=== PATIENT | male | born 1960 | race Caucasian/White ===

== ENCOUNTER 2023-11-14 12:29 | Outpatient (REF) | payer BC, SELFPAY ==
[2023-11-14 13:26] LABS: MANUAL DIFF FLAG NO
[2023-11-14 13:35] LABS: Basophils Absolute Auto 0.1 X10*3/uL (0.0-0.2); Basophils Percent Auto 0.7 % (0-2); Eosinophils Absolute Auto 0.1 X10*3/uL (0.0-0.4); Eosinophils Percent Auto 0.9 % (0-4); Hematocrit 47.9 % (42.0-52.0); Hemoglobin 16.3 g/dl (14.0-18.0); Imm Gran Abs Auto 0.02 X10*3/uL (0.00-0.03); Imm Gran Pct Auto 0.3 % (0.0-0.4); Lymphocytes Absolute Auto 1.8 X10*3/uL (1.2-4.9); Lymphocytes Percent Auto 24.6 % (20-40); Mean Corpuscular Hemoglobin 29.6 pg (27.0-33.0); Mean Corpuscular Volume 86.9 fL (80.0-98.0); Mean Platelet Volume 9.4 fL (9.4-12.4); Monocytes Absolute Auto 0.7 X10*3/uL (0.1-1.2); Monocytes Percent Auto 9.5 % (2-11); Neutrophils Absolute Auto 4.8 x10*3/uL (2.0-8.3); Platelet Count 299 X10*3/uL (160-400); Red Blood Count 5.51 X10*6/uL (4.60-5.80); Red Cell Distribution Width 12.5 % (11.0-16.0); White Blood Count 7.5 X10*3/uL (4.8-10.8)
[2023-11-14 14:05] LABS: Alanine Aminotransferase 18 U/L (0-40); Albumin Level 4.3 g/dL (3.5-5.0); Alkaline Phosphatase 44 U/L (39-117); Anion Gap 13 (12-20); Aspartate Amino Transferase 17 U/L (5-37); Bilirubin Total 0.5 mg/dL (0.0-1.0); Blood Urea Nitrogen 10 mg/dL (9-16); Calcium 9.3 mg/dL (8.4-10.2); Carbon Dioxide 23 mmol/L (22-29); Chloride 108 mmol/L (96-108); Estimated Glomerular Filt Rate > 60; Glucose Fasting 92 mg/dL (60-99); Sodium 140 mmol/L (135-145); Total Protein 7.5 g/dL (6.5-8.0)
[2023-11-14 14:08] LABS: Erythrocyte Sedimentation Rate 2 MM/HR (0-15)
[2023-11-14 14:14] LABS: Free T4 (Free Thyroxine) 1.02 ng/dL (0.71-1.85); Thyroid Stimulating Hormone 0.86 uIU/mL (0.32-4.0)
== END 2023-11-14 12:30 | disposition home or self-care (01) ==
LOC: HO.10HDL 12:29
PROVIDERS: Visit Provider Family Medicine
DX: R53.81 Other malaise (principal); R53.1 Weakness
CPT/HCPCS: 36415; 80053; 84439; 84443; 85025; 85652

== ENCOUNTER 2025-03-24 14:22 | Outpatient (AMB) | payer BC, SELFPAY ==
--- NOTE | 2025-03-24 14:25 | A.OFFPC_ITS ---
Vital Signs 03/24/25 14:29 Height 5 ft 11 in Weight 89.811 kg BMI 27.6 BP 126/78 Respiration 14 Pulse 94 Temp 97.3 F Temp Source Temporal Artery Scan Pulse Oximetry (%) 97 Oxygen Delivery Method Room Air Intake Visit Reasons: routine,Dr Londono pt Voice Network Administrator Required: No Accompanied by: Self / Same As Patient Allergies Environmental Allergy (Intermediate, Uncoded 06/11/20 16:14) COUGH, RUNNY NOSE, SORE THROAT Medication List - Last Reconciled 03/24/25 by PJ Pizano No Known Home Meds HPI HPI Comments History of Present Illness Details 64-year-old male with history of BPH, ma carly depressive disorder, GERD, hyperlipidemia, venous insufficiency presents to the office today for management of chronic conditions, post ER evaluation, and to establish care. Reports that he was seen at [facility] after he pulled a ?black thing? off of his left foot. He had presented with significant erythema and swelling and did ultimately test positive for Lyme disease. He was prescribed a 14 day course of doxycycline which he has been taking as prescribed. Initially he felt the redness was worsening but has now been receding. There is no warmth. No fevers or chills. He does question whether he needs repeat testing to ensure resolution of Lyme disease. Hyperlipidemia-not currently on statin Vitamin-D deficiency-taking multivitamin Major depressive disorder-reports stable. Not currently on medications. PHQ-9 is 0, valentina 7 score 0. No SI/HI BPH-no LUTS. Not on medication Concerns: None other than that mentioned above Health maintenance: Last screening colonoscopy 11/2020 at [facility] with 5 year follow-up advised Due for screening PSA ROS: General: No fevers, malaise, unintentional weight loss HEENT: No blurred vision, diplopia. No sore throat, nasal congestion, rhinorrhea, sinus pain, ear pain Cardiovascular: No chest pain, palpitations, or leg edema Respiratory: No shortness of breath, wheezing, cough GI: No abdominal pain, nausea, vomiting, diarrhea, constipation, melena, hematochezia : No dysuria, hematuria, increased urinary frequency, decreased urinary output MSK: No myalgia, back pain Neuro: No headaches, weakness, paresthesias Skin: No rashes or lesions. see hpi EXAM: Constitutional - Awake and Alert, No apparent distress Eyes - PERRL Cardiovascular - S1S2, RRR, No edema Respiratory - Normal lung expansion, Normal respiratory effort, No respiratory distress, CTA bilaterally Extremities - no calf tenderness bilaterally, no swelling Skin - Warm/Dry . Receding dusky erythema of distal L foot with callous noted between 1st and 2nd toes without drainage Neurological - Alert & oriented x3 Psychological - Appropriate affect [facility] Medical History (Updated 03/24/25 @ 15:47 by PJ Pizano) Vitamin D deficiency Venous insufficiency Irritable bowel syndrome with diarrhea Hypercholesterolemia GERD (gastroesophageal reflux disease) Major depressive disorder Varicose veins of both lower extremities BPH (benign prostatic hyperplasia) Surgical History (Updated 03/24/25 @ 15:50 by Nory Nuñez) History of colonoscopy (~12/01/20) Questionnaire PHQ-9 Over the last 2 weeks, how often have you been bothered by any of the following problems? 1. Little interest or pleasure in doing things: not at all 2. Feeling down, depressed, or hopeless: not at all 3. Trouble falling or staying asleep, or sleeping too much: not at all 4. Feeling tired or having little energy: not at all 5. Poor appetite or overeating: not at all 6. Feeling bad about yourself - or that you are a failure or have let yourself or your family down: not at all 7. Trouble concentrating on things, such as reading the newspaper or watching television: not at all 8. Moving or speaking so slowly that other people could have noticed. Or the opposite - being so fidgety or restless that you have been moving around a lot more than usual: not at all 9. Thoughts that you would be better off or of hurting yourself in some way: not at all Total score: 0 Depression Screening Interpretation: Negative Depression Screening Done: Yes 79225 - PHQ-9 Billing: Yes Source: Developed by Drs. Jason Parrish, Lynsey Childs, Jonathan Gleason and colleagues, with an educational susanna from [employer]. Thrive Questionnaire Date Thrive assessed: 03/24/25 I am a: Patient What is your living situation today?: I have a steady place to live Within the past 12 months, did the food you bought not last and you didn't have the money to get more?: Never true Within the past 12 months, did you worry whether your food would run out before you got money to buy more?: Never true Do you have trouble paying for medicines?: No Do you have trouble getting transportation to medical appointments?: No Do you have trouble paying your heating and electricity bill?: No Do you have trouble taking care of your child, family member or friend?: No Do you have trouble with day-to-day activities such as bathing, preparing meals, shopping, managing finances, etc.?: No Are you currently unemployed and looking for a job?: No Are you interested in more education?: No THRIVE Score: 0 VALENTINA-7 AMB Questionnaire VALENTINA-7 Date VALENTINA - 7 assessed: 03/24/25 Feeling nervous, anxious, or on edge: 0 = Not at all Not being able to stop or control worryin = Not at all Worrying too much about different things: 0 = Not at all Trouble relaxin = Not at all Being so restless that it is hard to sit still: 0 = Not at all Becoming easily annoyed or irritable: 0 = Not at all Feeling afraid as if something awful might happen: 0 = Not at all Total VALENTINA-7 score (0-4 normal; 5-9 mild; 10-14 moderate; 15-21 severe): 0 Source: Developed by Drs. Jason Parrish, Lynsey Childs, Jonathan Gleason and colleagues, with an educational susanna from [employer]. VALENTINA-7 Assessment Billing VALENTINA-7 Assessment Tool: VALENTINA-7 Assessment 69808 Physical exam (Primary Care) Vital Signs: Last Vital Signs Temp 97.3 F 03/24/25 14:29 Pulse 94 03/24/25 14:29 Resp 14 03/24/25 14:29 BP 126/78 03/24/25 14:29 Pulse Ox 97 03/24/25 14:29 Oxygen Delivery Method Room Air 03/24/25 14:29 BMI result Body Mass Index 27.6 PHQ-9: PHQ-9 Score PHQ-9: Total score 0 03/24/25 14:38 Depression Screening Interpretation: Negative Thrive Assessment: Date of Thrive Assessment Date Thrive assessed 03/24/25 03/24/25 14:35 Coding Level of Care Code New Pt Level 4 (81217) Complex EM visit Add On G2211 Diagnoses Lyme disease A69.20 BPH (benign prostatic hyperplasia) N40.0 Hypercholesterolemia E78.00 Major depressive disorder F32.9 Additional Codes PHQ-9 - 69641 - PHQ-9 Billing: Yes ([id number]) VALENTNIA-7 Assessment Billing - VALENTINA-7 Assessment Tool: VALENTINA-7 Assessment 54048 ([id number]) Assessment & Plan Assessment & Plan (1) Lyme disease: Code(s): A69.20 - Lyme disease, unspecified Category: Medical Plan: Complete course of doxycycline times 14 days. We will recheck Lyme IgM/IgG in 4 weeks (2) BPH (benign prostatic hyperplasia): Code(s): N40.0 - Benign prostatic hyperplasia without lower urinary tract symptoms Category: Medical Plan: Stable, asymptomatic. Monitor (3) Hypercholesterolemia: Code(s): E78.00 - Pure hypercholesterolemia, unspecified Category: Medical Plan: Lipid panel ordered. ASCVD risk score to be calculated pending results of study at which point statin maybe recommended (4) Major depressive disorder: Code(s): F32.9 - Major depressive disorder, single episode, unspecified Category: Medical Plan: Stable. PHQ-9 score 0. Continue monitoring Plan Follow-up in the office in 6 months with labs to be completed following visit. He requests these be completed at [facility] and is given paper lab slips Orders: Orders Lipid Panel 03/24/25 E78.00 - Pure hypercholesterolemia, unspecified, N40.0 - Benign prostatic hyperplasia without lower urinary tract symptoms, Z12.5 - Encounter for screening for malignant neoplasm of prostate Liver Panel 03/24/25 E78.00 - Pure hypercholesterolemia, unspecified, N40.0 - Benign prostatic hyperplasia without lower urinary tract symptoms, Z12.5 - Encounter for screening for malignant neoplasm of prostate Complete Blood Count Auto Diff 03/24/25 E78.00 - Pure hypercholesterolemia, unspecified, N40.0 - Benign prostatic hyperplasia without lower urinary tract symptoms, Z12.5 - Encounter for screening for malignant neoplasm of prostate Lyme IgG/IgM w/reflex to WB 03/24/25 A69.20 - Lyme disease, unspecified Basic Metabolic Panel 03/24/25 E78.00 - Pure hypercholesterolemia, unspecified, N40.0 - Benign prostatic hyperplasia without lower urinary tract symptoms, Z12.5 - Encounter for screening for malignant neoplasm of prostate Prostate Specific Antigen 03/24/25 E78.00 - Pure hypercholesterolemia, unspecified, N40.0 - Benign prostatic hyperplasia without lower urinary tract symptoms, Z12.5 - Encounter for screening for malignant neoplasm of prostate Vitamin D 25-OH Total 03/24/25 E55.9 - Vitamin D deficiency, unspecified
[2025-03-24 14:29] VITALS: BP 126/78; PULSE 94; RESP 14; TEMP 36.3; O2SAT 97; BMI 27.6
--- OUTSIDE RECORDS SUMMARY | 2025-03-24 14:52 | XMS_ITS | Patient Health Record ---
Author Organization [facility] Address [address] [place] [address] Care Team Providers Care Roundhouse Supervisor Name Role Phone Bry DEJESUS, Dorian Primary Care Provider Unavailab Jason Rocha Unavailable [phone] Reason For Referral No Information Medications Medication SIG (Take, Route, Frequency, Duration) Notes Start Date End Date Status Metoprolol Tartrate 25 MG 1 tablet Orally once a day Active MoviPrep 100 GM as directed Orally a s directed for 1 dose 06/03/2015 Active Problems Problem Type SNOMED Code ICD Code Onset Dates Problem Status W/U Status Risk Notes Problem Family History of Cancer of Colon (Situation) (743931064) Family history of colon cancer (V16.0) Active confirmed Problem Colon cancer screening (V76.51) Active confirmed Problem [id number] Encounter for screening colonoscopy (Z12.11) Active confirmed Plan Of Treatment Future Test Test Name Order Date COLONOSCOPY 06/03/2015 Medical (General) History Medical History History ICD Code Denies [place],DM,CVA,Lung disease,renal dise ase Negative colonoscopy in his 40's HTN Surgical History Surgery Date(Month/Year) cholecystectomy 1997
== END 2025-03-24 15:21 | disposition home or self-care (01) ==
LOC: HO.HMCHD 14:22
PROVIDERS: PCP Family Medicine; Visit Provider Physician Assistant
DX: A69.20 Lyme disease, unspecified (principal); N40.0 Benign prostatic hyperplasia without lower urinary tract symptoms; E78.00 Pure hypercholesterolemia, unspecified; F32.9 Major depressive disorder, single episode, unspecified

== ENCOUNTER → 2025-03-24 14:22 | Outpatient (BNVA) | payer BC, SELFPAY | PROVIDERS: PCP Family Medicine; Visit Provider Physician Assistant | DX: A69.20 Lyme disease, unspecified (principal); N40.0 Benign prostatic hyperplasia without lower urinary tract symptoms; E78.00 Pure hypercholesterolemia, unspecified; F32.9 Major depressive disorder, single episode, unspecified; Z13.31 Encounter for screening for depression; Z13.30 Encounter for screening examination for mental health and behavioral disorders, unspecified | CPT/HCPCS: 96127 ==

== ENCOUNTER 2025-04-10 10:56 | Outpatient (AMB) | payer BC, SELFPAY ==
--- NOTE | 2025-04-10 10:57 | MHC.PC.OV ---
Vital Signs 04/10/25 11:05 Weight 193 lb BP 100/66 Blood Pressure Location Lt brachial Position Sitting Respiration 16 Pulse 80 Pulse Source Pulse Oximeter Temp 96.7 F L Temp Source Temporal Artery Scan Pulse Oximetry (%) 98 Oxygen Delivery Method Room Air Intake Visit Reasons: 3 month follup up /[place] pt Rn Home Health Required: No Accompanied by: Self / Same As Patient Allergies Environmental Allergy (Intermediate, Uncoded 06/11/20 16:14) COUGH, RUNNY NOSE, SORE THROAT Tobacco use date assessed: 04/10/25 HPI HPI Comments History of Present Illness Details 64-year-old male with history of BPH, major depressive disorder, GERD, hyperlipidemia, venous insufficiency, recent Lyme treatment presenting for follow up Seen 03/24 by colleague for follow up ER visit-had tick bite with subsequent significant erythema and swelling - test positive for Lyme disease. Took 14 day course of doxycycline prescribed by ER. Lyme testing IgM positive at [facility]. He is feeling ok Hyperlipidemia-not currently on statin Vitamin-D deficiency-taking multivitamin Major depressive disorder-reports stable. Not currently on medications. PHQ-9 is 0, valentina 7 score 0. No SI/HI BPH-no LUTS. Not on medication Last screening colonoscopy 11/2020 at [facility] with 5 year follow-up advised Due for screening PSA ROS CONSTITUTIONAL: Denies weight loss, fever and chills. HEENT: Denies changes in vision and hearing. RESPIRATORY: Denies SOB and cough. CV: Denies palpitations and CP GI: Denies abdominal pain, nausea, vomiting and diarrhea. : Denies dysuria and urinary frequency. MSK: Denies new myalgia and joint pain. SKIN: Denies rash and pruritus. NEUROLOGICAL: Denies headache PSYCHIATRIC: Denies recent changes in mood. PHYSICAL EXAM: GENERAL: Alert and oriented x 3. NAD EYES: EOMI. Anicteric. HENT: Moist mucous membranes. No scleral icterus. No cervical lymphadenopathy. LUNGS: Clear to auscultation bilaterally. CARDIOVASCULAR: Regular rate and rhythm. No murmur. No JVD. ABDOMEN: Soft, non-tender +bs EXTREMITIES: No edema. Non-tender. SKIN: No rashes or lesions. Warm. NEUROLOGIC: No focal neurological deficits. CN II-XII grossly intact PSYCHIATRIC: Cooperative. Appropriate mood and affect [facility] Medical History Vitamin D deficiency Venous insufficiency Irritable bowel syndrome with diarrhea Hypercholesterolemia GERD (gastroesophageal reflux disease) Major depressive disorder Varicose veins of both lower extremities BPH (benign prostatic hyperplasia) Surgical History History of colonoscopy (~12/01/20) Social History Patient Tobacco Use Status: Former Tobacco user e-Cigarette/Vaping Use: Never Used Questionnaire Thrive Questionnaire Date Thrive assessed: 03/24/25 AUDIT C Alcohol Use Questionnaire (AUDIT-C) 1. How often do you have a drink containing alcohol?: Never 2. How many drinks containing alcohol do you have on a typical day when you are drinking?: 1 or 2 Total Score: 0 VALENTINA-7 AMB Questionnaire VALENTINA-7 Date VALENTINA - 7 assessed: 03/24/25 Source: Developed by Drs. Jason Parrish, Lynsey Childs, Jonathan Gleason and colleagues, with an educational susanna from [employer]. Physical exam (Primary Care) Vital Signs: Last Vital Signs Temp 96.7 F L 04/10/25 11:05 Pulse 80 04/10/25 11:05 Resp 16 04/10/25 11:05 BP 100/66 04/10/25 11:05 Pulse Ox 98 04/10/25 11:05 Oxygen Delivery Method Room Air 04/10/25 11:05 Tobacco/Smoking Status: Tobacco use Status Tobacco use date assessed 04/10/25 04/10/25 10:59 Patient Tobacco Use Status Former Tobacco user 04/10/25 11:08 e-Cigarette/Vaping Use Never Used 04/10/25 11:08 Thrive Assessment: Date of Thrive Assessment Date Thrive assessed 03/24/25 04/10/25 10:59 Coding Level of Care Code Est Pt Level 4 (58531) Diagnoses Lyme disease A69.20 Assessment & Plan Assessment & Plan (1) Lyme disease: Code(s): A69.20 - Lyme disease, unspecified Category: Medical Plan: Discussed post lyme treatment testing is not recommended. Testing can remain positive despite successful treatment of infection. Discussed that treatment recommendations vary but 14-21 days recommended. He would like to complete a 21 day course of antibiotic. Discussed no need for retesting. Dsicussed 14% of people treated with early disease will go on to develop adjunct faculty for medical terminology post lyme sequelae. Medications: New doxycycline hyclate 100 mg PO BID 42 caps 0RF triamcinolone acetonide 0.1% 1 appl topical BID 30 grams 0RF rash
[2025-04-10 11:05] VITALS: BP 100/66; PULSE 80; RESP 16; TEMP 35.9; O2SAT 98
--- OUTSIDE RECORDS SUMMARY | 2025-04-10 11:44 | XMS_ITS | Patient Health Record ---
Author Organization [facility] Address [address] [place] [address] Care Team Providers Care Lye Machine Operator Name Role Phone Bry (RETIRED) Dorian DEJESUS Primary Care Provider Unavailable Jason Sam Unavailable [phone] Reason For Referral No Information Medications Medication [...] Family History of Cancer of Colon (Situation) ([id number]) Family history of colon cancer (V16.0) Active confirmed Problem Colon cancer screening (V76.51) Active confirmed Problem [id number] Encounter for screening colonoscopy (Z12.11) Active confirmed Plan Of Treatment Future Test Test Name Order Date COLONOSCOPY 06/03/2015 Medical (General) History Medical History History ICD Code Denies [place],DM,CVA,Lung disease,renal dise ase Negative colonoscopy in his 40's HTN Surgical History Surgery Date(Month/Year) cholecystectomy 1997
== END 2025-04-10 11:26 | disposition home or self-care (01) ==
LOC: HO.HMCHD 10:57
PROVIDERS: PCP Family Medicine; Visit Provider Internal Medicine
DX: A69.20 Lyme disease, unspecified (principal)

== ENCOUNTER 2025-06-30 11:26 | Outpatient (AMB) | payer BC, SELFPAY ==
--- NOTE | 2025-06-30 11:12 | A.OFFPC_ITS ---
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 He reports he will be changing practices given proximity to where he lives. Seen 03/24 by colleague for follow up ER visit-had tick bite with subsequent significant erythema and swelling - test positive for Lyme disease. He completed several courses of doxycycline with full resolution of symptoms. Awaiting lab report from [facility] Hyperlipidemia-not currently on statin. Last LDL 116 Vitamin-D deficiency-not currently taking vitamin but has been taking 35469 units at time of lab draw. Vitamin-D level 33 Major depressive disorder-reports stable. Not currently on medications. Stable BPH-no LUTS. Not on medication Concerns: None Health maintenance: Last screening colonoscopy 11/2020 at [facility] with 5 year follow-up advised Due for screening PSA ROS: General: No fevers, malaise, unintentional weight loss HEENT: No blurred vision, diplopia. No sore throat, nasal congestion, rhinorrhea, sinus pain, ear pain Cardiovascular: No chest pain, palpitations, or leg edema Respiratory: No shortness of breath, wheezing, cough GI: No abdominal pain, nausea, vomiting, diarrhea, constipation, melena, hematochezia : No dysuria, hematuria, increased urinary frequency, decreased urinary output MSK: No myalgia, back pain Neuro: No headaches, weakness, paresthesias Skin: No rashes or lesions EXAM: Constitutional - Awake and Alert, No apparent distress Eyes - PERRL Cardiovascular - S1S2, RRR, No edema Respiratory - Normal lung expansion, Normal respiratory effort, No respiratory distress, CTA bilaterally Extremities - no calf tenderness bilaterally, no swelling Skin - Warm/Dry Neurological - Alert & oriented x3 Psychological - Appropriate affect PFSH Medical History Vitamin D deficiency Venous insufficiency Irritable bowel syndrome with diarrhea Hypercholesterolemia GERD (gastroesophageal reflux disease) Major depressive disorder Varicose veins of both lower extremities BPH (benign prostatic hyperplasia) Surgical History History of colonoscopy (~12/01/20) Social History Patient Tobacco Use Status: Former Tobacco user e-Cigarette/Vaping Use: Never Used Questionnaire Thrive Questionnaire Date Thrive assessed: 03/24/25 VALENTINA-7 AMB Questionnaire VALENTINA-7 Date VALENTINA - 7 assessed: 03/24/25 Source: Developed by Drs. Jason Parrish, Lynsey Childs, Jonathan Gleason and colleagues, with an educational susanna from [employer]. Physical exam (Primary Care) Vital Signs: Last Vital Signs Temp 96.8 F 06/30/25 11:36 Pulse 76 06/30/25 11:36 Resp 16 06/30/25 11:36 BP 120/70 06/30/25 11:36 Pulse Ox 98 06/30/25 11:36 Oxygen Delivery Method Room Air 06/30/25 11:36 BMI result Body Mass Index 28.0 Tobacco/Smoking Status: Tobacco use Status Tobacco use date assessed 04/10/25 06/30/25 11:13 Patient Tobacco Use Status Former Tobacco user 06/30/25 11:13 e-Cigarette/Vaping Use Never Used 06/30/25 11:13 Thrive Assessment: Date of Thrive Assessment Date Thrive assessed 03/24/25 06/30/25 11:13 Coding Level of Care Code Est Pt Level 4 (02233) Diagnoses Vitamin D deficiency E55.9 Major depressive disorder F32.9 Hypercholesterolemia E78.00 BPH (benign prostatic hyperplasia) N40.0 Assessment & Plan Assessment & Plan (1) Vitamin D deficiency: Code(s): E55.9 - Vitamin D deficiency, unspecified Category: Medical Plan: Vitamin-D level ordered for re-evaluation to determine need for supplementation/dosage (2) Major depressive disorder: Code(s): F32.9 - Major depressive disorder, single episode, unspecified Category: Medical Plan: Stable. Continue monitoring for any decompensation. No SI/HI (3) Hypercholesterolemia: Code(s): E78.00 - Pure hypercholesterolemia, unspecified Category: Medical Plan: Reviewed last lipid panel from 03/2025 which is appropriately controlled Continue monitor (4) BPH (benign prostatic hyperplasia): Code(s): N40.0 - Benign prostatic hyperplasia without lower urinary tract symptoms Category: Medical Plan: Without LUTS. Monitor for symptoms Plan Follow-up as scheduled in 3 months. Labs to be obtained from [facility] Patient Instructions: [facility] [address] [facility] Floor [address]
[2025-06-30 11:36] VITALS: BP 120/70; PULSE 76; RESP 16; TEMP 36; O2SAT 98; BMI 28.0
--- OUTSIDE RECORDS SUMMARY | 2025-06-30 14:06 | XMS_ITS | Patient Health Record ---
Author Organization [facility] Address [address] [place] [address] Care Team Providers Care Junior Systems Engineer Name Role Phone Bry (RETIRED) Dorian DEJESUS Primary Care Provider Unavailable Jason Sam Unavailable [phone] Reason For Referral No Information Medications Medication [...] Family History of Cancer of Colon (Situation) ([id number]) Family history of colon cancer (V16.0) Active confirmed Problem Colon cancer screening (185322040) Colon cancer screening (V76.51) Active confirmed Problem 474746978 Encounter for screening colonoscopy (Z12.11) Active confirmed Plan Of Treatment Future Test Test Name Order Date COLONOSCOPY 06/03/2015 Medical (General) History Medical History History ICD Code Denies [place],DM,CVA,Lung disease,renal dise ase Negative colonoscopy in his 40's HTN Surgical History Surgery Date(Month/Year) cholecystectomy 1997
== END 2025-06-30 12:00 | disposition home or self-care (01) ==
LOC: HO.HMCHD 11:27
PROVIDERS: PCP Physician Assistant; Visit Provider Physician Assistant
DX: E55.9 Vitamin D deficiency, unspecified (principal); F32.9 Major depressive disorder, single episode, unspecified; E78.00 Pure hypercholesterolemia, unspecified; N40.0 Benign prostatic hyperplasia without lower urinary tract symptoms